=== PATIENT | female | born 1940 | race Caucasian/White ===

== ENCOUNTER 2020-05-31 16:17 | Emergency (ER) | payer OTHER ==
[2020-05-31 17:25] VITALS: BP 162/83; PULSE 76; TEMP 98.2; BMI 33.6
[2020-05-31 17:58] LABS: EPITHELIAL CELLS FEW /hpf
--- NOTE | 2020-05-31 18:33 | PDOC ---
Documentation entered by Becka De Leon SCRIBE, acting as scribe for Kavon Delvalle MD. Kavon Delvalle MD: This documentation has been prepared by the Moises boyle Ana, SCRIBE, under my direction and personally reviewed by me in its entirety. I confirm that the documentation accurately reflects all work, treatment, procedures, and medical decision making performed by me. History of Present Illness <Keyanna Mackay - Last Filed: 05/31/20 19:49> - General History Source: Patient Exam Limitations: No Limitations - History of Present Illness Initial Comments: 05/31/20 16:40 Patient is an 80 year old female with a significant past medical history of double knee replacement, hypertension, vertigo, hypercholesterolemia, and GERD,who presents to the ED after falling. Patient stated she was in the bathroom when she suddenly felt her legs give out under her, causing her to fall forward and hit her head. Pt denies LOC. Denies any preceding lightheadedness/dizziness. Denies CP/SOB/palpitations. Pt now complains of pain in her R knee but has been able to bear weight and ambulate. Allergies: Naproxen, ciprofloxacin, sulfonamide antibiotics, levofloxacin PCP: Dr. Aurelia Alvarado <Kavon Delvalle - Last Filed: 06/02/20 19:02> - General Chief Complaint: Injury Stated Complaint: FALL Time Seen by Provider: 05/31/20 16:20 Past History <Keyanna Mackay - Last Filed: 05/31/20 19:49> - Medical History Anemia: No Asthma: No Cancer: Yes (THYROID NODULE-2008) Cardiac Disorders: No CVA: No COPD: No CHF: No Dementia: No Diabetes: No GI Disorders: Yes (ACID REFLUX) Disorders: Yes (FREQUENT UTI) HTN: Yes (DX 2008) Hypercholesterolemia: No Liver Disease: No Seizures: No Thyroid Disease: Yes (thyroidectomy) - Surgical History Abdominal Surgery: No Appendectomy: No Cardiac Surgery: No Cholecystectomy: Yes Lung Surgery: No Neurologic Surgery: No Orthopedic Surgery: Yes (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) - Psycho-Social/Smoking History Smoking Status: No Smoking History: Never smoked Number of Cigarettes Smoked Daily: 0 <Kavon Delvalle - Last Filed: 06/02/20 19:02> - Medical History Allergies/Adverse Reactions: Allergies Allergy/AdvReac Type Severity Reaction Status Date / Time naproxen [From Naprosyn] Allergy Intermediate FACIAL Verified 08/20/16 14:30 SWELLING ciprofloxacin [From Cipro] Allergy Mild Rash Verified 08/20/16 14:30 Sulfa (Sulfonamide Allergy Mild Rash Verified 08/20/16 14:30 Antibiotics) [Sulfa(Sulfonamide Antibiotics)] levofloxacin [From Levaquin] Allergy Verified 08/20/16 14:30 Home Medications: Ambulatory Orders Levothyroxine [Synthroid -] 100 mcg PO DAILY@0700 #0 tablet 07/11/14 Losartan Potassium [Cozaar -] 50 mg PO DAILY #0 tablet 07/11/14 Multivitamins [Multivit ([facility] Formulary)] 1 tab PO DAILY #0 tab 07/11/14 Ascorbate Calcium [Vitamin C] 500 mg PO DAILY 08/20/16 Cholecalciferol (Vitamin D3) [Vitamin D -] 2,000 unit PO DAILY 08/20/16 Cephalexin [Keflex] 500 mg PO QID #20 capsule 05/31/20 Nitrofurantoin Monohyd/M-Cryst [Macrobid -] 100 mg PO BID #14 capsule 05/31/20 Review of Systems - Review of Systems Able to Perform ROS?: Yes Comments:: 05/31/20 16:42 GENERAL/CONSTITUTIONAL: No fever or chills. No weakness. HEAD, EYES, EARS, NOSE AND THROAT: No change in vision. No ear pain or discharge. No sore throat. CARDIOVASCULAR: No chest pain, no shortness of breath, no loss of consciousness RESPIRATORY: No cough, wheezing, or hemoptysis. GASTROINTESTINAL: No nausea, vomiting, diarrhea or constipation. GENITOURINARY: No dysuria, frequency, or change in urination. MUSCULOSKELETAL: + R knee pain, No neck or back pain. SKIN: No rash NEUROLOGIC: No vertigo, no change in strength/sensation. ENDOCRINE: No increased thirst. No abnormal weight change. HEMATOLOGIC/LYMPHATIC: No anemia, easy bleeding, or history of blood clots. ALLERGIC/IMMUNOLOGIC: No hives or skin allergy. <Kavon Delvalle - Last Filed: 06/02/20 19:02> *Physical Exam - Vital Signs Last Vital Signs Temp Pulse Resp BP Pulse Ox 98.2 F 76 20 162/83 99 05/31/20 16:19 05/31/20 16:19 05/31/20 16:19 05/31/20 16:19 05/31/20 16:19 <Keyanna Mackay - Last Filed: 05/31/20 19:49> - Physical Exam 05/31/20 16:43 GENERAL: Awake, alert, and fully oriented, in no acute distress. HEAD: + hematoma to forehead EYES: PERRLA, EOMI, sclera anicteric, conjunctiva clear ENT: Auricles normal inspection, hearing grossly normal, nares patent, oropharynx clear without exudates. Moist mucosa NECK: Nontender, no stepoffs, Normal ROM, supple, no lymphadenopathy, JVD, or masses LUNGS: Breath sounds equal, clear to auscultation bilaterally. No wheezes, and no crackles HEART: Regular rate and rhythm, normal S1 and S2, no murmurs, rubs or gallops ABDOMEN: Soft, nontender, normoactive bowel sounds. No guarding, no rebound. No masses EXTREMITIES: + TTP over R knee, Normal range of motion, no edema. No clubbing or cyanosis. No cords, erythema, or tenderness NEUROLOGICAL: Cranial nerves II through XII intact. 5/5 strength and sensation in all extremities, Normal speech, normal gait, normal cerebellar function SKIN: Warm, Dry, normal turgor, no rashes or lesions noted. <Kavon Delvalle - Last Filed: 06/02/20 19:02> ED Treatment Course - ADDITIONAL ORDERS Additional order review: Laboratory Results 05/31/20 17:28 Urine Color Yellow Urine Appearance Clear Urine pH 5.0 Urine Protein Negative Urine Glucose (UA) Negative Urine Ketones Negative Urine Blood Negative Urine Nitrite Positive H Urine Bilirubin Negative Urine Urobilinogen 0.2 Ur Leukocyte Esterase Negative Urine RBC 0-2 Urine WBC 10-20 Ur Transition Epith Cell Few Urine Bacteria Moderate <Keyanna Mackay - Last Filed: 05/31/20 19:49> Medical Decision Making - Medical Decision Making 05/31/20 18:35 80 F with R knee injury and forehead hematoma after mechanical fall. - CT head/c-spine - R knee XR - UA per daughter's request, given h/o UTI Pt signed out to Dr. Mackay at 7pm, pending imaging and UA <Kavon Delvalle - Last Filed: 06/02/20 19:02> Discharge - Discharge Information Problems reviewed: Yes <Keyanna Mackay - Last Filed: 05/31/20 19:49> - Discharge Information Problems reviewed: Yes <Kavon Delvalle - Last Filed: 06/02/20 19:02> - Discharge Information Clinical Impression/Diagnosis: UTI (urinary tract infection), Fall Condition: Stable Disposition: HOME - Additional Discharge Information Prescriptions: Cephalexin [Keflex] 500 mg PO QID #20 capsule Nitrofurantoin Monohyd/M-Cryst [Macrobid -] 100 mg PO BID #14 capsule - Follow up/Referral Referrals: ON STAFF,NOT [Primary Care Provider] - - Patient Discharge Instructions Patient Printed Discharge Instructions: DI for Contusion Additional Instructions: Rest; elevation/ice to areas of bruising Tylenol as needed for pain Macrobid 100 mg twice a day for the next 7 days We will contact you if treatment of UTI requires a different antibiotic Return if you have worsening pain, lightheadedness, severe headache or vomiting Contact your general doctor regarding today's ER visit and follow-up as arranged
[2020-05-31] MEDS ORDERED: NITROFURANTOIN MACROCRYSTAL 50 MG CAPSULE (FP) ONE (19:50)
--- NOTE | 2020-05-31 19:58 | PDOC ---
*Physical Exam - Vital Signs Last Vital Signs Temp Pulse Resp BP Pulse Ox 98.2 F 76 20 162/83 99 05/31/20 16:19 05/31/20 16:19 05/31/20 16:19 05/31/20 16:19 05/31/20 16:19 ED Treatment Course - ADDITIONAL ORDERS Additional order review: Laboratory Results 05/31/20 17:28 Urine Color Yellow Urine Appearance Clear Urine pH 5.0 Urine Protein Negative Urine Glucose (UA) Negative Urine Ketones Negative Urine Blood Negative Urine Nitrite Positive H Urine Bilirubin Negative Urine Urobilinogen 0.2 Ur Leukocyte Esterase Negative Urine RBC 0-2 Urine WBC 10-20 Ur Transition Epith Cell Few Urine Bacteria Moderate Medical Decision Making - Medical Decision Making 05/31/20 19:55 Care of this patient received from Right knee x-ray interpretation by Dr. Ashraf: Soft tissue swelling in the prepatellar area, otherwise unremarkable for fracture/dislocation Results of imaging studies and urinalysis discussed with the patient and her daughter. Since the patient is currently symptomatic for UTI (frequent urination), will empirically start nitrofurantoin 100 mg twice a day with first dose given here in the emergency room. The patient states that she has been prescribed this medication in the past and has tolerated it well. It was explained to the patient and her daughter that results of the urine culture/sensitivity may require that the antibiotic be changed. They understand this and agree. Patient will be discharged with a recommendations to rest, elevate right leg and apply ice to contusions of the right forehead/right elbow area /right knee as much as possible over the next 1 to 2 days. Discharge - Discharge Information Problems reviewed: Yes Clinical Impression/Diagnosis: UTI (urinary tract infection), Fall Condition: Stable Disposition: HOME - Additional Discharge Information Prescriptions: Cephalexin [Keflex] 500 mg PO QID #20 capsule Nitrofurantoin Monohyd/M-Cryst [Macrobid -] 100 mg PO BID #14 capsule - Follow up/Referral Referrals: ON STAFF,NOT [Primary Care Provider] - - Patient Discharge Instructions Patient Printed Discharge Instructions: DI for Contusion Additional Instructions: Rest; elevation/ice to areas of bruising Tylenol as needed for pain Macrobid 100 mg twice a day for the next 7 days We will contact you if treatment of UTI requires a different antibiotic Return if you have worsening pain, lightheadedness, severe headache or vomiting Contact your general doctor regarding today's ER visit and follow-up as arranged - Post Discharge Activity
[2020-05-31] MEDS ORDERED: NITROFURANTOIN MACROCRYSTAL 50 MG CAPSULE (FP) PO SCH (20:00)
--- NOTE | 2020-06-01 12:00 | EKG ---
Test Reason : Blood Pressure : / mmHG Vent. 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 RATE HAS DECREASED BY 40 BPM Confirmed by HOMAR LOERA MD ([id number]) on 06/01/2020 11:59:33 AM Referred By: DR ALLISON Confirmed By:HOMAR LOREA MD
== END 2020-05-31 19:58 | disposition home or self-care (01) ==
LOC: FER 16:17 → SUPCPDRO 16:17 → FER 19:58
DX: N39.0 Urinary tract infection, site not specified (principal)
CPT/HCPCS: 70450-TC; 72125-TC; 73562-TC-RT-FY; 81003; 81015; 87086; 87186; 93005; 99285-25

== ENCOUNTER 2021-02-12 11:40 | Emergency (ER) | payer OTHER ==
[2021-02-12] MEDS ORDERED: LIDOCAINE HCL 1%, 10 MG/ML (50 mL VIAL) SQ ONE (12:15)
[2021-02-12] MEDS ORDERED: LIDOCAINE HCL 1%, 10 MG/ML (20ML VIAL) ONE (12:17)
[2021-02-12 12:51] VITALS: BP 187/89; PULSE 98; TEMP 99.8; BMI 33.5
== END 2021-02-12 13:18 | disposition home or self-care (01) ==
LOC: FER 11:40
DX: L03.011 Cellulitis of right finger (principal)
CPT/HCPCS: 99283-25